=== PATIENT | male | born 1970 | race Caucasian/White ===

== ENCOUNTER 2025-04-11 12:35 | Emergency (ER) | payer BC, SELFPAY ==
[2025-04-11] VITALS (7 sets, daily range): BP systolic 147–166; BP diastolic 98–109; BMI 30.5
[2025-04-11 12:40] LABS: Glucose - Point of Care 98 mg/dl (70-99)
[2025-04-11] MEDS: NSS 1000 IV (12:45)
[2025-04-11 12:50] LABS: % Basophils 0.7 % (0-2); % Eosinophils 0.1 % (0-6); % Immature Granulocytes 0.5 % (0-0.5); % Lymphocytes 15.6 % (20.5-51.1); % Monocytes 7.5 % (1.7-9.3); % Neutrophils 75.6 % (42.2-75.2); Absolute Basophils 0.1 10^3/uL (0-0.2); Absolute Immature Granulocytes 0.1 10^3/uL (0-0.05); Absolute Lymphocytes 1.5 10^3/uL (1.2-3.4); Absolute Monocytes 0.7 10^3/uL (0.1-0.6); Absolute Neutrophils 7.2 10^3/uL (1.4-6.5); Hematocrit 41.3 % (39.0-52.0); Hemoglobin 14.8 g/dL (13.0-18.0); Mean Corp Hgb Conc. 35.8 g/dL (33.0-37.0); Mean Corpuscular Hgb 31.2 pg (27.0-31.0); Mean Corpuscular Volume 86.9 fL (80.0-94.0); Mean Platelet Volume 9.6 fL (7.4-10.4); Nucleated Red Blood Cells % 0 % (-); Platelet Count 337 10^3/uL (130-400); Red Blood Cell Count 4.75 10^6/uL (4.70-6.10); Red Cell Dist. Width 11.7 % (11.5-14.5); White Blood Cell Count 9.5 10^3/uL (4.8-10.8)
--- NOTE | 2025-04-11 12:53 | ED.GENMED ---
History of Present Illness
General
Chief Complaint: Fainting/Passed Out
Time Seen by Provider: 04/11/25 12:44
History of Present Illness
History of Present Illness:
55-year-old male with past medical history of left shoulder injury presenting to the emergency department for both depressive symptoms and a syncopal episode. Patient arrives with who is bring him into the hospital because he has not been
eating or drinking for the past several days, notes a lot of stress with work and underlying depression. Additionally patient has this chronic left shoulder injury, chronic pain, has had issues with follow-up. While waiting in the waiting room,
patient had a near syncopal episode. Patient allegedly fell to the ground, unclear if struck his head. He was able to stand up to get onto the hospital bed. No prolonged period of unresponsiveness. Patient on arrival notes fatigue, denies chest
pain or difficulty breathing. Denies abdominal pain. Notes pain to his left upper extremity which is chronic. He denies focal weakness or numbness. Denies additional acute medical complaint
Phy Exam
Physical Exam
Physical Exam:
General: Well-appearing, no clinical signs of dehydration, nontoxic and in no acute distress
HEENT: protecting airway
Neck: appears supple
CV: Normal heart rate, regular rhythm
Resp: No accessory muscle use, no increased work of breathing, lungs clear to auscultation bilaterally
Abd: Soft and non-distended, no tenderness to palpation. Generalized tenderness left shoulder. Pulses and sensation intact
Neuro: alert, no focal neurologic deficit
: deferred
Rectal: deferred
Psych: Normal affect
Skin: Intact
Course
Orders/Labs/Results
Orders:
Orders
04/11/25 12:37
ECG [Electrocardiogram (*1)] Urgent
Reason for Study: Syncope
04/11/25 12:38
EKG- Treatment ONCE
04/11/25 12:42
Complete Blood Count/With Diff Urgent
Comprehensive Metabolic Panel Urgent
Magnesium Urgent
Troponin I Urgent
04/11/25 12:44
CT Head W/o Iv Contrast Urgent
Comment:
Reason For Exam: fall, syncope
Crisis Consult Urgent
Reason for Consult: depression
0.9% Sodium Chloride 1000 ml [Nss] 1,000 ml IV BOLUS
04/11/25 12:45
0.9% Sodium Chloride 1000 ml [Nss] 1,000 ml IV BOLUS
04/11/25 14:31
Ketorolac [Toradol] 15 mg IV NOW STA
Abnormal Lab Results
04/11/25
12:42
MCH 31.2 H pg
(27.0-31.0)
Abs Immat Gran (auto) 0.1 H 10^3/uL
(0-0.05)
Absolute Neuts (auto) 7.2 H 10^3/uL
(1.4-6.5)
Absolute Monos (auto) 0.7 H 10^3/uL
(0.1-0.6)
Neutrophils % 75.6 H %
(42.2-75.2)
Lymphocytes % 15.6 L %
(20.5-51.1)
04/11/25 12:42
04/11/25 12:42
Vital Signs
Initial and Last Documented VS:
Initial Vital Signs
Resp
40
04/11/25 12:40
Last Documented Vital Signs
Temp Pulse Resp BP Pulse Ox
97.6 F 99 20 147/105 98
04/11/25 12:50 04/11/25 15:06 04/11/25 15:06 04/11/25 15:06 04/11/25 15:06
MDM/Problems Addressed
MDM/Problems Addressed:
55-year-old male presenting to the emergency department with near syncopal episode and depression. Vital signs on arrival are significant for hypertension.
On exam patient is resting comfortably, no acute distress or discomfort. Patient had a witnessed episode in the waiting room, without report of full loss of consciousness. In discussion with , notes that he has been eating or drinking for the
past several days due to stress and depression. Vasovagal quality and volume depletion contributing to symptoms. No significant signs of trauma. Patient is awake, alert, GCS of 15. No significant signs of trauma. EKG obtained, no arrhythmia or
ischemia. Will screen with laboratory analysis to ensure no electrolyte derangements or findings of severe dehydration. Will start patient on IV fluids. Unclear if patient struck his head, so will obtain CT brain imaging. Will consult with
crisis team regarding underlying depression
14:30 -labs unremarkable. CT brain negative. Patient reports that he is having left shoulder pain, arrives with MRI. Notes tear to the labrum and is having difficulty with pain and follow-up. His follow-up appoint with orthopedics is not until
the beginning of April. Patient sensation and motor is grossly intact on exam. Will provide our information for orthopedics, which may be able to see him sooner, however no indication for emergent surgery. Pending crisis eval
15:15 -patient is not suicidal or homicidal. Offering outpatient resources. Otherwise stable for discharge with outpatient orthopedic follow-up. Return precautions discussed.
*EKG
Interpreted by ED Provider?: Yes
EKG Intrepretation Date: 04/11/25
EKG Intrepretation Time: 13:03
Interpretation: normal
Comparison EKG: no comparison EKG present
Heart Rate: 69
Rate: normal
Rhythm: sinus
[place]: normal axis
Interval: normal interval
QRS Pattern: left vent hypertrophy
Ischemia: no ischemia
*Critical Care Note
Total Time (30-74mins, 75-104mins- exclusive of procedures): Not Applicable
ED Attending Note
-
Portions of this chart may have been created with voice recognition software.� Occasional wrong word or��sound alike� substitutions may have occurred due to the inherent limitations of voice recognition software.
Discharge Plan
Departure
Prescriptions:
No Action
alprazolam 0.5 mg Tablet
0.5 mg PO DAILY
Referrals:
Robert Moulton MD [Family Provider, Internal Medicine]
Interventions
Interventions:
*Risk Screen - Suicide Last Done: 04/11/25 12:50
*General Assessment Last Done: 04/11/25 12:50
*Neglect/Abuse Screening Last Done: 04/11/25 12:50
*ED- Fall Risk Assessment Last Done: 04/11/25 12:50
*ED COVID-19 Vaccine History Last Done: 04/11/25 12:50
ED- Cardiac Assessment Last Done: 04/11/25 12:50
ED- Neurological Assessment Last Done: 04/11/25 12:50
Discharge Date and Time
Print Language: ROMANIAN
[2025-04-11 13:15] LABS: ALT (SGPT) 19 U/L (0-50); AST (SGOT) 20 U/L (17-59); Albumin 4.7 g/dl (3.5-5.0); Alkaline Phosphatase 72 U/L (38-126); Blood Urea Nitrogen 17 mg/dl (9-20); Calcium 9.4 mg/dl (8.4-10.2); Carbon Dioxide 22 mmol/L (22-30); Chloride 106 mmol/L (98-107); Estimated Creatinine Clearance 96 ml/min; Glucose 97 mg/dl (70-99); Magnesium 2.1 mg/dl (1.6-2.3); Potassium 4.3 mmol/L (3.5-5.1); Sodium 137 mmol/L (135-145); Total Bilirubin 0.9 mg/dl (0.2-1.3); Total Protein 7.9 g/dl (6.3-8.2); eGFR > 60.00
[2025-04-11 13:26] LABS: Troponin I < 0.012 ng/ml
[2025-04-11] MEDS: TORADOL 15 MG IV (14:47)
== END 2025-04-11 15:46 | disposition home or self-care (01) ==
LOC: EMR 12:35
PROVIDERS: EMERGENCY PHYSICIAN Student in an Organized Health Care Education/Training Program; FAMILY PHYSICIAN Internal Medicine
DX: R55 Syncope and collapse (principal); F32.A Depression, unspecified
CPT/HCPCS: 99284; 96374; 96361; 70450; 80053; 82962; 83735; 84484; 85025; 93005

== ENCOUNTER → 2025-09-25 14:04 | Outpatient (REF) | payer OTHER, SELFPAY | LOC: RAD 14:04 | PROVIDERS: ATTENDING PHYSICIAN Internal Medicine | DX: R10.32 Left lower quadrant pain (principal) | CPT/HCPCS: 74177; Q9967 ==

== ENCOUNTER 2025-09-26 11:55 | Emergency (ER) | payer OTHER, SELFPAY ==
[2025-09-26 11:59] VITALS: BP 118/86
[2025-09-26 12:33] VITALS: BMI 27.1
[2025-09-26 12:54] LABS: Hematocrit 44.2 % (39.0-52.0); Hemoglobin 15.5 g/dL (13.0-18.0); Mean Corp Hgb Conc. 35.1 g/dL (33.0-37.0); Mean Corpuscular Volume 86.7 fL (80.0-94.0); Nucleated Red Blood Cells % 0 % (-); Platelet Count 301 10^3/uL (130-400); Red Cell Dist. Width 11.7 % (11.5-14.5)
--- NOTE | 2025-09-26 13:02 | ED.GENMED ---
History of Present Illness
<BRANDON Nova - Last Filed: 09/27/25 15:26>
General
Chief Complaint: Abdominal Pain
Source: patient
Exam Limitations: none
Time Seen by Provider: 09/26/25 12:22
Nursing documentation reviewed up to this point in time: agreed with
History of Present Illness
History of Present Illness:
Patient is a 55-year-old male presents to the ER for evaluation of abdominal pain. Patient started with left lower abdominal pain for the past 2 weeks worse over the past 5 days. He has had a decreased appetite and nausea. He saw his family
doctor and had an outpatient CAT scan done yesterday which did show an inguinal hernia as well as small umbilical hernia. Patient denies any actual injury. Patient denies any back pain. Patient denies urinary frequency or urgency. Patient denies
any fevers. Patient has not taken anything for pain but complains of worsening persistent pain. He has been a little constipated and took Dulcolax and stool softener and did have a small bowel movement a couple days ago.
Phy Exam
<BRANDON Nova - Last Filed: 09/27/25 15:26>
General Physical Exam
General Presentation: no apparent distress
General age: appears stated age
General Skin: warm and dry
General Habitus: normal
General Mental: alert
General Hydration: appears well hydrated
Gastrointestinal Exam
Gastrointestinal Exam: soft and other (+ tenderness throughout left side of abdomen )
Neurological Exam
Neurological Exam: alert and oriented x3
Musculoskeletal Exam
Musculoskeletal Exam: full ROM
Skin Exam
Skin Exam: normal color and warm/dry
Psychiatric Exam
Psychiatric Exam: normal mood/affect
Course
<BRANDON Nova - Last Filed: 09/27/25 15:26>
Orders/Labs/Results
Orders:
Orders
09/26/25 12:44
Complete Blood Count/With Diff Urgent
Comprehensive Metabolic Panel Urgent
Lipase Urgent
Comment: ADD
09/26/25 13:12
Add On- LAB Urgent
Tests Added?: lipase
09/26/25 13:55
0.9% Sodium Chloride 1000 ml [Nss] 1,000 ml IV BOLUS
Ketorolac [Toradol] 15 mg IV NOW STA
09/26/25 14:22
US Abdomen Complete/Upper Urgent
Comment:
Reason For Exam: left sided abd pain
09/26/25 16:20
CT Abd/pelvis W Iv Cont Urgent
Comment:
Reason For Exam: llq pain
HYDROmorphone [Dilaudid] 0.5 mg IV NOW STA
Abnormal Lab Results
09/26/25
12:44
Abs Immat Gran (auto) 0.1 H 10^3/uL
(0-0.05)
Immature Gran % 0.8 H %
(0-0.5)
Lymphocytes % 19.7 L %
(20.5-51.1)
Monocytes % 9.8 H %
(1.7-9.3)
Sodium 133 L mmol/L
(135-145)
09/26/25 12:44
09/26/25 12:44
Vital Signs
Initial and Last Documented VS:
Initial Vital Signs
Temp Pulse Resp BP Pulse Ox
98.0 F 89 20 118/86 97
09/26/25 11:59 09/26/25 11:59 09/26/25 11:59 09/26/25 11:59 09/26/25 11:59
Last Documented Vital Signs
Temp Pulse Resp BP Pulse Ox
98.0 F 60 18 114/80 98
09/26/25 11:59 09/26/25 19:15 09/26/25 20:00 09/26/25 20:00 09/26/25 20:00
Grape Grower consulted with Physician
Grape Grower consulted with physician?: Yes
Name of Physician Consulted: Catalino
<Gregory Torres PA-C - Last Filed: 09/26/25 20:05>
Orders/Labs/Results
Orders:
Orders
09/26/25 12:44
Complete Blood Count/With Diff Urgent
Comprehensive Metabolic Panel Urgent
Lipase Urgent
Comment: ADD
09/26/25 13:12
Add On- LAB Urgent
Tests Added?: lipase
09/26/25 13:55
0.9% Sodium Chloride 1000 ml [Nss] 1,000 ml IV BOLUS
Ketorolac [Toradol] 15 mg IV NOW STA
09/26/25 14:22
US Abdomen Complete/Upper Urgent
Comment:
Reason For Exam: left sided abd pain
09/26/25 16:20
CT Abd/pelvis W Iv Cont Urgent
Comment:
Reason For Exam: llq pain
HYDROmorphone [Dilaudid] 0.5 mg IV NOW STA
Abnormal Lab Results
09/26/25
12:44
Abs Immat Gran (auto) 0.1 H 10^3/uL
(0-0.05)
Immature Gran % 0.8 H %
(0-0.5)
Lymphocytes % 19.7 L %
(20.5-51.1)
Monocytes % 9.8 H %
(1.7-9.3)
Sodium 133 L mmol/L
(135-145)
09/26/25 12:44
09/26/25 12:44
Vital Signs
Initial and Last Documented VS:
Initial Vital Signs
Temp Pulse Resp BP Pulse Ox
98.0 F 89 20 118/86 97
09/26/25 11:59 09/26/25 11:59 09/26/25 11:59 09/26/25 11:59 09/26/25 11:59
Last Documented Vital Signs
Temp Pulse Resp BP Pulse Ox
98.0 F 60 18 114/80 98
09/26/25 11:59 09/26/25 19:15 09/26/25 20:00 09/26/25 20:00 09/26/25 20:00
<BRANDON Nova - Last Filed: 09/27/25 15:26>
MDM/Problems Addressed
MDM/Problems Addressed:
As documented patient is a 55 male who presents with left side abdominal pain for the past 5 days associate with a decreased appetite. Mild constipation. He had an outpatient CAT scan done yesterday which was negative for acute findings no
evidence of diverticulitis. Patient has a small umbilical hernia measuring 1 cm containing fat and a small left inguinal hernia containing fat measuring 2 cm. Patient presents back with continued left side abdominal pain tender on exam. He has no
tenderness to the inguinal or umbilical region. There is no palpable hernia. Will give a dose of IV Toradol. His labs unremarkable.
Case reviewed with radiology who also reviewed CAT scan from yesterday no acute findings again seen. Will order ultrasound at this time. Case reviewed ED physician.
1505:Care of pt at this time transferred to UZAIR Jenkins.
<BRANDON Nova - Last Filed: 09/27/25 15:26>
*Radiology
Radiology exam reviewed: radiology read reviewed
*Pulse Oximetry
SaO2: 97
Oxygen Mode of Delivery: Room air
Patient hypoxic: no
*Critical Care Note
Total Time (30-74mins, 75-104mins- exclusive of procedures): Not Applicable
Data Reviewed
Review of Other/Old Records Reveals: Other (Previous CAT scan done yesterday.)
<Gregory Torres PA-C - Last Filed: 09/26/25 20:05>
Update Note
Update Note:
Assumed care of patient pending ultrasound of abdomen. Ultrasound of abdomen was negative. Reassessed patient he still quite tender to the left lower quadrant Toradol did not help his pain. He denies any testicular pain dysuria. He states he has
been able to move his bowels lately because he had not been eating or drinking anything. Discussion with patient was had regarding potential for repeat CAT scan given the tenderness he opted to repeat CAT scan. He states he cannot tolerate the
contrast by mouth at this point. Will do with IV contrast
Repeat CT and scan with IV contrast negative. Patient expresses his frustration about persistence of lower quadrant abdominal pain. Can presume potential diverticulitis is not showing up on CT. White count is normal. Offered Tylenol. This had
long discussion with patient regarding treatment options. Again he was frustrated about his sense of pain offered admission for intractable pain but he decided to go home. GI team made aware.
ED Attending Note
<BRANDON Nova - Last Filed: 09/27/25 15:26>
-
Portions of this chart may have been created with voice recognition software.� Occasional wrong word or��sound alike� substitutions may have occurred due to the inherent limitations of voice recognition software.
Discharge Plan
Departure
Patient Disposition: Home (Routine Discharge)
Date of Disposition: 09/26/25
Time of Disposition: 20:00
Patient with high blood pressure during this ER visit?: No
Discharge Problem:
Left lower abdominal pain
Instructions: Abdominal Pain
Prescriptions:
New
amoxicillin-pot clavulanate 875-125 mg tablet
1 tab PO BID Qty: 14 0RF
dicyclomine 10 mg capsule
10 mg PO QID PRN (Reason: pain) Qty: 14 0RF
No Action
alprazolam 0.5 mg Tablet
0.5 mg PO DAILY
gabapentin 100 mg capsule
100 mg PO BID 7 Days Qty: 14 0RF
Referrals:
Wanda Childs MD [Active, Gastroenterology]
Robert Moulton MD [Family Provider, Internal Medicine]
Stand Alone Forms: Return to Work
Activity Restrictions/Additional Instructions:
Patient take antibiotic as directed take Bentyl as directed for spasm. Drink plenty clear liquids. Advance to bland diet as tolerated. Return if worse otherwise follow-up with GI team
Interventions
Interventions:
*Risk Screen - Suicide Last Done: 09/26/25 11:59
*General Assessment Last Done: 09/26/25 20:16
*Neglect/Abuse Screening Last Done: 09/26/25 17:40
*ED COVID-19 Vaccine History Last Done: 09/26/25 17:40
*ED Influenza Vaccine History Last Done: 09/26/25 20:16
[facility] Fall Risk Assessment Tool Last Done: 09/26/25 12:42
*Nursing Disposition Last Done: 09/26/25 20:22
UD-Ledjcf-[id number] Assessment Last Done: 09/26/25 16:47
Discharge Date and Time
Discharge Date/Time: 09/26/25 20:22
Print Language: YAKUT
[2025-09-26 13:12] LABS: ALT (SGPT) 33 U/L (0-50); AST (SGOT) 36 U/L (17-59); Albumin 4.6 g/dl (3.5-5.0); Alkaline Phosphatase 74 U/L (38-126); Blood Urea Nitrogen 13 mg/dl (9-20); Calcium 9.4 mg/dl (8.4-10.2); Carbon Dioxide 24 mmol/L (22-30); Estimated Creatinine Clearance 78 ml/min; Glucose 88 mg/dl (70-99); Potassium 4.4 mmol/L (3.5-5.1); Sodium 133 mmol/L (135-145); Total Protein 7.8 g/dl (6.3-8.2); eGFR > 60.00
[2025-09-26 13:20] LABS: Chloride 102 mmol/L (98-107); Lipase 103 U/L (23-300)
[2025-09-26] MEDS: TORADOL 15 MG IV (14:07)
[2025-09-26] MEDS: NSS 1000 IV (14:08)
[2025-09-26 16:54] VITALS: BP 111/79
[2025-09-26 20:00] VITALS: BP 114/80
== END 2025-09-26 20:22 | disposition home or self-care (01) ==
LOC: EMR 11:55
PROVIDERS: Emergency Medicine; EMERGENCY PHYSICIAN Emergency Medicine; FAMILY PHYSICIAN Internal Medicine
DX: R10.32 Left lower quadrant pain (principal)
CPT/HCPCS: 99284; 96374; 96361; 74177; 76700; 80053; 83690; 85025; Q9967